=== PATIENT | female | born 1960 | race Two or more races ===

== ENCOUNTER → 2024-06-25 | Outpatient (CLI) | payer MEDICARE, MEDICAID, SELFPAY ==
--- NOTE | 2024-06-25 16:16 | XR_ITS ---
Examination: Ultrasound soft tissue neck TECHNIQUE: Grayscale high-resolution sonographic images soft tissue neck Exam date and time: June 25, 2024 1625 hours INDICATIONS: Patient states palpable lump mid neck underneath the chin noticed beginning 6 months ago. FINDINGS: Nodule in the mid neck submental which appears most likely representing small lymph node 5 x 4 x 5 mm IMPRESSION: Probable submental lymph nodes, CT soft tissue neck post contrast would best differentiate stone in the salivary gland versus lymph node if clinically warranted
== END | disposition home or self-care (01) ==
PROVIDERS: PCP Nurse Practitioner Family; Referring Provider Nurse Practitioner Family; Visit Provider Nurse Practitioner Family
DX: R22.1 Localized swelling, mass and lump, neck (principal)
CPT/HCPCS: 76536